=== PATIENT | female | born 1980 ===

== ENCOUNTER 2025-03-03 06:56 | Day surgery (SDC) | payer OTHER ==
[2025-02-28 10:58] LABS: Anion Gap 8.3 mEq/L (5.0-15.0); BUN Blood Urea Nitrogen 11.0 mg/dL (7-18); Glucose Level 99.0 mg/dL (74-106); Potassium 4.3 mEq/L (3.5-5.1)
[2025-03-03] MEDS ORDERED: Ringers Lactate 1,000 ML IV ONE (07:18)
[2025-03-03] MEDS ORDERED: LIDOCAINE 1% MPF 5 ML VIAL ONE (08:46)
[2025-03-03] MEDS ORDERED: GLYCOPYRROLATE 0.2 MG/ML SYR ONE (08:46)
[2025-03-03 10:14] VITALS: BP 112/74; TEMP 98.5; O2SAT 100
[2025-03-07 07:53] LABS: Urine Specific Gravity/Preg 1.030 (1.005-1.030)
== END 2025-03-03 10:03 | disposition home or self-care (01) ==
LOC: OR 06:56
PROVIDERS: ATTEND Surgery
PROC: 0DJD8ZZ Inspection of Lower Intestinal Tract, Via Natural or Artificial Opening Endoscopic (ICD-10-PCS; principal; 2025-03-03 09:15)
DX: Z12.11 Encounter for screening for malignant neoplasm of colon (principal); K64.8 Other hemorrhoids; K57.30 Diverticulosis of large intestine without perforation or abscess without bleeding
CPT/HCPCS: 93005; 80048; 36415; 81025; 45378; J2704; J2003; J7120